=== PATIENT | male | born 1960 | race Caucasian/White ===

== ENCOUNTER 2017-05-01 10:44 | Outpatient (CLI) | payer OTHER | END 2017-05-01 10:48 | disposition home or self-care (01) | LOC: SONOGRAMA 10:44 | DX: M25.512 Pain in left shoulder (principal) ==

== ENCOUNTER 2017-05-01 10:50 | Outpatient (CLI) | payer OTHER | END 2017-05-01 11:06 | disposition home or self-care (01) | LOC: RAD 10:50 | DX: M25.512 Pain in left shoulder (principal) ==

== ENCOUNTER 2021-01-02 07:33 | Outpatient (CLI) | payer OTHER | END 2021-01-02 07:49 | disposition home or self-care (01) | LOC: SONOGRAMA 07:33 | PROVIDERS: ATTEND Internal Medicine Gastroenterology | DX: R10.84 Generalized abdominal pain (principal); M75.51 Bursitis of right shoulder; M19.012 Primary osteoarthritis, left shoulder; M19.011 Primary osteoarthritis, right shoulder; M75.52 Bursitis of left shoulder ==

== ENCOUNTER 2021-02-14 08:30 | Outpatient (CLI) | payer OTHER | END 2021-02-14 09:00 | disposition home or self-care (01) | LOC: PPH VACUNA 08:30 | PROVIDERS: ATTEND Emergency Medicine Pediatric Emergency Medicine | DX: Z23 Encounter for immunization (principal) ==

== ENCOUNTER 2021-08-10 13:15 | Outpatient (CLI) | payer OTHER | END 2021-08-10 13:25 | disposition home or self-care (01) | LOC: PPH VACUNA 13:15 | PROVIDERS: ATTEND Emergency Medicine Pediatric Emergency Medicine | DX: Z23 Encounter for immunization (principal) ==

== ENCOUNTER 2022-12-20 12:22 | Emergency (ER) | payer OTHER ==
[~2022-12-20] VITALS: Ht 175.3 cm; Wt 104.3 kg
[2022-12-20] MEDS ORDERED: CRESTOR5 MG PO (12:45)
[2022-12-20] MEDS ORDERED: GLUMETZA1000 MG PO (12:45)
[2022-12-20] MEDS ORDERED: HYZAAR 100-12.1 EACH PO (12:45)
[2022-12-20] MEDS ORDERED: PRILOSEC OTC20 MG PO (12:46)
[2022-12-20 13:27] LABS: HEMATOCRIT 47.4 % (39.0-48.0); HEMOGLOBIN 15.3 g/dL (13-16.00); MEAN CELL VOLUME 87.6 fL (80.0-100.00); MEAN CORPUSCULAR HEMOGLOBIN 28.3 pg (27.00-32.0); MEAN CORPUSCULAR HGB CONC 32.3 g/dl (32.0-36.0); PLATELET COUNT 193 K/uL (150-450); RED BLOOD COUNT 5.41 M/uL (4.00-6.00); RED CELL DISTRIBUTION WIDTH 14.5 % (11.5-14.5)
[2022-12-20 13:27] LABS: URINE APPEARANCE Clear; URINE BILIRRUBIN Negative (NEGATIVE); URINE BLOOD Negative; URINE COLOR Yellow; URINE GLUCOSE Negative (NEGATIVE); URINE LEUKOCYTE Negative; URINE NITRATE Negative; URINE PROTEIN Negative (NEGATIVE)
[2022-12-20 13:30] LABS: URINE RBC 2.4 uL (0.0-20.8)
[2022-12-20 13:31] LABS: URINE BACTERIA 3.7 uL (0.0-1933)
[2022-12-20 13:50] LABS: CALCIUM 9.6 mg/dL (8.5-10.1); CREATININE SERUM 0.96 mg/dL (0.70-1.30); GFR 79.63; POTASSIUM 4.42 mEq/L (3.5-5.1)
== END 2022-12-20 15:20 | disposition home or self-care (01) ==
LOC: ER 12:22
PROVIDERS: Emergency Medicine
DX: R10.9 Unspecified abdominal pain (principal); E11.9 Type 2 diabetes mellitus without complications; Z79.84 Long term (current) use of oral hypoglycemic drugs; K21.9 Gastro-esophageal reflux disease without esophagitis; I10 Essential (primary) hypertension; E78.00 Pure hypercholesterolemia, unspecified; K80.20 Calculus of gallbladder without cholecystitis without obstruction